=== PATIENT | female | born 1955 | race Caucasian/White ===

== ENCOUNTER 2016-11-13 17:51 | Emergency (ER) | payer OTHER ==
[2016-11-13 18:30] VITALS: BP 157/80
--- NOTE | 2016-11-13 22:33 | UC ---
Upper Extremity HPI - HPI Summary HPI Summary: fingers hurting after shovelling snow today. She has known arthritis. Her doctor wanted her to see a Inspector [employer]ing to see what kind of arthritis it is, but she never went. She has deformities and swelling of fingers, especially 3rd fingers PIP joints. After shovelling snow, these fingers swelled and were more painful than usual. Fingertips painful and tingly. She has been here before with these symptoms and has been told this is what happens with arthritis, but she doesn't seem to understand. Takes an occasional OTC anti-inflammatory for her joint pains. Heat helps. - History of Current Complaint Chief Complaint: UCUpperExtremity Stated Complaint: PAIN, MIDDLE FINGER RIGHT HAND Time Seen by Provider: 11/13/16 18:32 Hx Obtained From: Patient Hx Last Menstrual Period: Age 52 yrs Onset/Duration: Gradual Onset, Lasting Hours Severity Initially: Mild Severity Currently: Moderate Pain Intensity: 9 Pain Scale Used: 0-10 Numeric Character: Dull, Aching, Stiffness Aggravating Factor(s): Movement, Flexion, Extension Alleviating Factor(s): Heat Associated Signs And Symptoms: Positive: Swelling. Negative: Redness, Bruising , Fever, Weakness, Numbness/Tingling - Risk Factors Non-Orthopedic Risk Factor: Negative DVT Risk Factors: Negative Septic Arthritis Risk Factor: Negative Compartment Syndrome Risk Factors: Pain - Allergies/Home Medications Allergies/Adverse Reactions: Allergies Allergy/AdvReac Type Severity Reaction Status Date / Time No Known Allergies Allergy Verified 11/13/16 18:30 PMH/Surg Hx/FS Hx/Imm Hx - Additional Past Medical History Additional PMH: arthritis smiley in hands, but also elsewhere. She was told "it could be rheumatoid arthritis", but no workup has been done Psychological History Of: Reports: Anxiety - Surgical History Surgical History: Yes Surgery Procedure, Year, and Place: 2000 L breast lumpectomy - Family History Family History: she is vague about family history, when I ask about arthritis in family she isn't sure. Does say her mother young. - Social History Occupation: Retired Lives: With Family Alcohol Use: None Substance Use Type: Prescribed Smoking Status (MU): Light Every Day Tobacco Smoker Amount Used/How Often: < 1/2 ppd Have You Smoked in the Last Year: Yes Review of Systems Constitutional: Negative Skin: Negative Eyes: Negative ENT: Negative Respiratory: Negative Cardiovascular: Negative Gastrointestinal: Negative Genitourinary: Negative Motor: Negative Neurovascular: Negative Musculoskeletal: Arthralgia, Decreased ROM Neurological: Negative Psychological: Negative All Other Systems Reviewed And Are Negative: Yes Physical Exam Triage Information Reviewed: Yes Appearance: Well-Appearing, No Pain Distress, Well-Nourished, Thin Vital Signs: Initial Vital Signs Temp 98.5 F 11/13/16 18:22 Pulse 86 11/13/16 18:22 Resp 20 11/13/16 18:22 BP 157/80 11/13/16 18:22 Vital Signs Reviewed: Yes Eye Exam: Normal Respiratory Exam: Normal Cardiovascular Exam: Normal Musculoskeletal Exam: Other - both hands with changes consistent with arthritis , particularly PIP joints. There is mild deformity of both 3rd fingers from arthritis. No redness. Mild joint swelling. Pain on flexion and extension. Neurological Exam: Normal Psychological Exam: Normal Skin Exam: Normal Upper Extremity Course/Dx - Differential Dx/Diagnosis Differential Diagnosis/HQI/PQRI: Arthritis Provider Diagnoses: arthritis Discharge - Discharge Plan Condition: Stable Disposition: HOME Patient Education Materials: Arthritis (ED) Referrals: Bessy Snyder MD [Medical Doctor] - Jerome DIAZ,Janie Awad [Medical Doctor] - Additional Instructions: Talk to your primary care doctor or a [employer] (Dr. Cano) to see about a work-up for your arthritis. Once you have arthritis, it doesn't go away. It will gradually get worse. But there are medicines that can be very helpful for slowing down the joint destruction and helping with the pain. For now, take three Motrin tablets three times a day when your arthritis pain is bothersome. Put heat on the sore joints and rest them.
== END 2016-11-13 18:55 | disposition home or self-care (01) ==
LOC: UCCORT 17:51
DX: M19.041 Primary osteoarthritis, right hand (principal); F17.210 Nicotine dependence, cigarettes, uncomplicated
CPT/HCPCS: 99211; G0463

== ENCOUNTER 2017-06-13 11:40 | Emergency (ER) | payer OTHER ==
[2017-06-13 12:44] VITALS: BP 188/107
--- NOTE | 2017-06-13 13:12 | RAD ---
HISTORY: Constipation, bloating COMPARISONS: None VIEWS: Frontal views of the abdomen. FINDINGS: BOWEL: There is a nonspecific bowel gas pattern, with nondilated small bowel gas noted. There is a large amount of stool within the colon. CALCULI: There are no abnormal calculi. BONES AND SOFT TISSUES: There are no osseous abnormalities. OTHER FINDINGS: The lung bases are clear. There is no subphrenic gas. IMPRESSION: NONSPECIFIC BOWEL GAS PATTERN. LARGE AMOUNT OF STOOL THROUGHOUT THE COLON.
--- NOTE | 2017-06-13 15:07 | UC ---
Abdominal Pain Female HPI - HPI Summary HPI Summary: 62 year old female with constipationand no BM in > 8 days prior to recent surgery. She was on hydro but has not taken in days. Took MOM and prune juice but no help. No pain. No nausea. No vomiting or fever or abdominal cramping. Just wants to make sure no acute concerns . - History of Current Complaint Chief Complaint: UCGeneralIllness Stated Complaint: CONSTIPATION Time Seen by Provider: 06/13/17 12:48 Hx Obtained From: Patient, Family/Compensation Manager Hx Last Menstrual Period: Age 52 yrs Onset/Duration: Gradual Onset Pain Intensity: 0 Pain Scale Used: 0-10 Numeric Location: Diffuse Radiates: No Aggravating Factor(s): Nothing Alleviating Factor(s): Nothing Associated Signs and Symptoms: Positive: Negative Allergies/Adverse Reactions: Allergies Allergy/AdvReac Type Severity Reaction Status Date / Time No Known Allergies Allergy Verified 06/13/17 12:34 Home Medications: Home Medications Acetaminophen [Acetaminophen Extra Stren] 500 mg PO Q6H PRN 06/13/17 [History Confirmed 06/13/17] Cephalexin CAP* [Keflex 500 CAP*] 500 mg PO BID 06/13/17 [History Confirmed ] Docusate CAP* [Colace Cap*] 100 mg PO BID 06/13/17 [History Confirmed 06/13/17] Magnesium Hydroxide LIQ* [Milk of Magnesia LIQ*] 30 ml PO ONCE PRN 06/13/17 [ History Confirmed 06/13/17] oxyCODONE/Acetam5/325MG PREPAK [Percocet 5/325 TAB*] 0.5 tab PO Q4H PRN [History Confirmed 06/13/17] PMH/Surg Hx/FS Hx/Imm Hx Previously Healthy: Yes - Surgical History Surgical History: Yes Surgery Procedure, Year, and Place: 2000 L breast lumpectomy. 2017- bilateral mastectomy - Family History Known Family History: Negative: Cardiac Disease, Hypertension Family History: she is vague about family history, when I ask about arthritis in family she isn't sure. Does say her mother young. - Social History Lives: With Family Alcohol Use: None Substance Use Type: Prescribed Smoking Status (MU): Light Every Day Tobacco Smoker Amount Used/How Often: < 1/2 ppd Have You Smoked in the Last Year: Yes When Did the Patient Quit Smoking/Using Tobacco: 1 week ago Review of Systems Gastrointestinal: Other - constipation All Other Systems Reviewed And Are Negative: Yes Physical Exam Triage Information Reviewed: Yes Appearance: Well-Appearing, No Pain Distress, Well-Nourished Vital Signs: Initial Vital Signs Temp 99 F 06/13/17 12:36 Pulse 88 06/13/17 12:36 Resp 16 06/13/17 12:36 BP 188/107 06/13/17 12:36 Pulse Ox 100 06/13/17 12:36 Vital Signs Reviewed: Yes Eye Exam: Normal ENT Exam: Normal Dental Exam: Normal Neck exam: Normal Neck: Positive: 1 Respiratory Exam: Normal Cardiovascular Exam: Normal Abdominal Exam: Normal Abdomen Description: Positive: Nontender, No Organomegaly, Soft. Negative: CVA Tenderness (R), CVA Tenderness (L), Distended, Guarding Bowel Sounds: Positive: Hypoactive Musculoskeletal Exam: Normal Neurological Exam: Normal Psychological Exam: Normal Skin Exam: Normal Abd Pain Female Course/Dx - Course Course Of Treatment: xray shows no SBO. Advised to increase water intake, start Mg citrate to get the BM to move and if not improved tomorrow and no BM then RTO for enela but she declined at this time - Differential Dx/Diagnosis Provider Diagnoses: Constipation Discharge - Discharge Plan Condition: Good Disposition: HOME Prescriptions: Magnesium CITRATE* [Citrate of Magnesia*] 300 ml PO SEE INSTRUCTIONS #1 btl Patient Education Materials: Constipation (ED) Referrals: Delmis Santana NP [Primary Care Provider] - 4 Days
== END 2017-06-13 13:30 | disposition home or self-care (01) ==
LOC: UCCORT 11:40
DX: K59.00 Constipation, unspecified (principal); I10 Essential (primary) hypertension
CPT/HCPCS: 74020; 99212; G0463

== ENCOUNTER 2019-09-18 11:16 | Emergency (ER) | payer MEDICARE, OTHER ==
--- OUTSIDE RECORDS SUMMARY | 2019-09-18 11:40 | XMS REPORT | Continuity of Care Document ---
:1955 External Reference #:[id number] Author Name Josias Santana FNP Address [address] [place] [id number] Care Team Providers Name Role Phone Josias Santana MARKET DEVELOPMENT DIRECTOR - Nurse Care Team Information [facility] Practitioner Problems Active Problems Provider Date Pain in limb Faviola Monteiro MD Onset: 03/09/2016 Tobacco use Faviola Monteiro MD Onset: 03/09/2016 Personal history of primary malignant Josias Santana FNP Onset: 2017 neoplasm of breast Note: left breast - Osteoporosis Josias Santana FNP Onset: 09/04/2018 Note: Document: 09/01/18 - Dexa Scan Result Increased frequency of urination Josias Santana FNP Onset: 05/20/2019 Social History Type Date Description Comments Sex Unknown ETOH Use Rarely consumes alcohol Tobacco Use Start: Unknown End: Patient is a former smoker 1/4 PPD x 10 years Smoking Status Reviewed: 08/10/19 Patient is a former smoker 1/4 PPD x 10 years Allergies, Adverse Reactions, Alerts Description No Known Drug Allergies Medications Active Medications SIG Qnty Indications Ordering Date Provider Naproxen 1 tab by mouth twice 60tabs M65.842 Faviola Monteiro, 03/18/2019 250mg a day Tablets Fosamax one PO Q week *for 12tabs M81.8 Esther, 09/12/2018 70mg osteoporosis Josias, Tablets PRESSURE WASHER M17.0 Calcium 600-D 1 by mouth every 90tabs Josias Santana, 09/12/2018 [id number] day PRESSURE WASHER Tablets Immunizations CPT Code Status Date Vaccine Lot # [id number] Given 08/10/2019 Influenza High Dose [id number] Vital Signs Date Vital Result Comment 08/10/2019 1:44pm BP Systolic 151 mmHg 170/90 on repeat on RT arm BP Diastolic 80 mmHg 170/90 on repeat on RT arm Body Temperature 97.1 F Heart Rate 87 /min Respiratory Rate 18 /min Height 61.5 inches 5'1.50" Weight 120.38 lb BMI (Body Mass Index) 22.4 kg/m2 BSA (Body Surface Area) 1.53 m2 [place] body weight in kilograms 49 kg O2 % BldC Oximetry 95 % Ra Pain Level 0 03/18/2019 2:06pm BP Systolic 138 mmHg BP Diastolic 74 mmHg Body Temperature 98.1 F Heart Rate 96 /min Weight 120.12 lb O2 % BldC Oximetry 95 % Results Description No Information Available Procedures Date Code Description Status 09/01/2018 667704649 Bone Mineral Density Test Completed 04/08/2017 [id number] Mammogram Completed Medical Devices Description No Information Available Encounters Type Date Location Provider Dx Diagnosis Office Visit 03/18/2019 Family Medicine Charely Lunsford PA M65.842 Other synovitis 2:00p [address] and tenosynovitis, left hand Assessments Date Code Description Provider 08/10/2019 Z01.411 Encounter for gynecological examination Josias Santana FNP (general) (routine) with abnormal findings 08/10/2019 R03.0 Elevated blood-pressure reading, without Josias Santana FNP diagnosis of hypertension 08/10/2019 N95.0 Postmenopausal bleeding Josias Santana FNP 08/10/2019 Z12.11 Encounter for screening for malignant Josias Santana FNP neoplasm of colon 03/18/2019 M65.842 Other synovitis and tenosynovitis, left Charley Lunsford PA hand Plan of Treatment 08/10/2019 - Josias Santana FNPZ01.411 Encounter for gynecological examination (general) (routine) with abnormal findingsComments:depression screening negative Fall risk assessed - needs grab bars in bathroom, discussed. No H/O fallsImmunizations reviewed - declined pneumo's and given yearly flu shot, high dosePain assessment negativeMMSE - within normal limitsHealth care proxy reviewed, daughter - needs advance directives Screenings:Breast [facility] due to post menopausal bleeding concernscologaurd in place of tvbybejbmdvU41.0 Elevated blood-pressure reading, without diagnosis of hypertensionComments:may be one time high, but will get several nurse visits and then a follow up appt w/me to discuss furtherFollow up: two nurse visits (spaced a 10 -14 days) then follow up with me for BP f/u 15 min in 4-6 yyzesB62.0 Postmenopausal bleedingComments:Pap done - will await results. May need ultrasound for further zpezjcqznzE30.11 Encounter for screening for malignant neoplasm of colonComments:cologaurd ordered Functional Status Functional Condition Comment Date Status Glasses Active Independent with all ADL's Active Mental Status Description No Information Available Referrals Description No Information Available
--- NOTE | 2019-09-18 13:24 | UC ---
Lower Extremity/Ankle HPI - HPI Summary HPI Summary: Patient is a 64yo female presenting with L foot pain x1 week. Patient states that she may have hit her foot on a metal wheel of a chair but is unsure if that is what caused her pain. Patient describes pain as constant "feeling of big bruise." Denies any visible bruising. Denies swelling. Denies decreased ROM. Patient states pain is worse with walking at times. States she has tried hot pack and ibuprofen without relief. Denies h/o gout or known arthritis. - History of Current Complaint Chief Complaint: UCLowerExtremity Stated Complaint: LEFT FOOT COMPLAINT Hx Obtained From: Patient Hx Last Menstrual Period: Age 52 yrs Onset/Duration: Sudden Onset, Lasting Days Severity Currently: Moderate Pain Intensity: 8 Pain Scale Used: 0-10 Numeric Aggravating Factor(s): Standing, Ambulation Able to Bear Weight: Yes - Allergies/Home Medications Allergies/Adverse Reactions: Allergies Allergy/AdvReac Type Severity Reaction Status Date / Time No Known Allergies Allergy Verified 09/18/19 12:00 Home Medications: Home Medications NK [No Home Medications Reported] 09/18/19 [History Confirmed 09/18/19] PMH/Surg Hx/FS Hx/Imm Hx Previously Healthy: Yes - Surgical History Surgical History: Yes Surgery Procedure, Year, and Place: 2000 L breast lumpectomy. 2017- bilateral mastectomy - Family History Known Family History: Negative: Cardiac Disease, Hypertension Family History: she is vague about family history, when I ask about arthritis in family she isn't sure. Does say her mother young. - Social History Alcohol Use: Occasionally Substance Use Type: None Smoking Status (MU): Former Smoker Amount Used/How Often: < 1/2 ppd Have You Smoked in the Last Year: Yes When Did the Patient Quit Smoking/Using Tobacco: 2018 Review of Systems All Other Systems Reviewed And Are Negative: Yes Constitutional: Positive: Negative Skin: Negative: Rash, Bruising Respiratory: Positive: Negative Cardiovascular: Positive: Negative Gastrointestinal: Positive: Negative Musculoskeletal: Positive: Arthralgia - L foot pain. Negative: Decreased ROM, Edema Neurological: Positive: Negative. Negative: Weakness, Paresthesia, Numbness Physical Exam Triage Information Reviewed: Yes Appearance: Well-Appearing, No Pain Distress, Well-Nourished Vital Signs: Initial Vital Signs Temp 98.9 F 09/18/19 12:00 Pulse 78 09/18/19 12:00 Resp 16 09/18/19 12:00 BP 147/77 09/18/19 12:00 Pulse Ox 96 09/18/19 12:00 Vital Signs Reviewed: Yes Eyes: Positive: Conjunctiva Clear ENT: Positive: Hearing grossly normal Neck: Positive: Supple Respiratory: Positive: No respiratory distress Cardiovascular: Positive: Pulses Normal, Brisk Capillary Refill - <2 sec Musculoskeletal: Positive: Strength Intact, ROM Intact, No Edema, Other: - mild tenderness with palpation of L lateral forefoot Neurological Exam: Other - sensation grossly intact Neurological: Positive: Alert Psychological: Positive: Age Appropriate Behavior Skin Exam: Normal - no erythema or ecchymosis Diagnostics - Radiology L foot Radiology Interpretation Completed By: Radiologist Summary of Radiographic Findings: IMPRESSION: NO EVIDENCE FOR FRACTURE, IF THE PATIENT'S SYMPTOMS PERSIST RECOMMEND FOLLOW-UP IMAGING. Lower Extremity Course/Dx - Course Course Of Treatment: Discussed negative radiographs with patient and instructed to continue with symptomatic treatment, including RICE and loose fitting shoes. Instructed patient to follow up with pcp or ortho if pain persist. Instructed to go to ED with any new or worsening symptoms. Patient voiced understanding and agreed with treatment plan. - Differential Dx/Diagnosis Differential Diagnosis/HQI/PQRI: Arthritis, Contusion, Sprain, Strain Provider Diagnosis: Acute pain of left foot Discharge ED - Sign-Out/Discharge Documenting (check all that apply): Patient Departure All imaging exams completed and their final reports reviewed: Yes - Discharge Plan Condition: Stable Disposition: HOME Patient Education Materials: Metatarsalgia (DC) Referrals: Delmis Santana NP [Primary Care Provider] - If Needed Cornelius Yu MD [Medical Doctor] - If Needed Additional Instructions: As discussed, your xrays did not show any abnormalities. Rest, ice, heat, elevation, and compression to help alleviate pain symptoms. You may continue to use over the counter pain medications as directed for pain relief. Wear shoes with a hard sole that also offer support and are loose fitting. Follow up with your primary care provider or the orthopedic referral listed below if pain persists. - Billing Disposition and Condition Condition: STABLE Disposition: Home
[2019-09-18 14:12] VITALS: BP 138/66
== END 2019-09-18 14:29 | disposition home or self-care (01) ==
LOC: UCCORT 11:16
DX: M79.672 Pain in left foot (principal); Z87.891 Personal history of nicotine dependence
CPT/HCPCS: 99211; G0463

== ENCOUNTER 2019-11-15 14:15 | Emergency (ER) | payer MEDICARE ==
--- OUTSIDE RECORDS SUMMARY | 2019-11-15 16:32 | XMS REPORT | Continuity of Care Document ---
:1955 External Reference #:[id number] Author Name Esther ROBINSON Ferrara Address [address] [place] [id number] Care Team Providers Name Role Phone Josias Santana ASIAN ART CURATOR - Nurse Care Team Information Social Services [phone] Practitioner Rupali Pulliam M.D. 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: left breast - Osteoporosis Josias Santana FNP Onset: 09/04/2018 Note: Document: 09/01/18 - Dexa Scan Result Increased frequency of urination Esther ROBINSON Ferrara Onset: 05/20/2019 Social History Type Date Description Comments Sex Unknown ETOH Use Rarely consumes alcohol Tobacco Use Start: Unknown End: Patient is a former smoker 1/4 PPD x 10 years Smoking Status Reviewed: 10/22/19 Patient is a former smoker 1/4 PPD x 10 years Allergies, Adverse Reactions, Alerts Description No Known Drug Allergies Medications Active Medications SIG Qnty Indications Ordering Provider Date Naproxen 1 tab by mouth 60tabs M65.842 Faviola Monteiro MD 03/18/2019 250mg Tablets twice a day Calcium 600-D 1 by mouth every 90tabs Esther, 09/12/2018 day ROBINSON Ferrara [id number] Tablets Geritol Complete take 1 tablet Unknown daily Tablets Immunizations CPT Code Status Date Vaccine Lot # [id number] Given 08/10/2019 Influenza High Dose [id number] Refused 10/22/2019 Pneumovax Injection Vital Signs Date Vital Result Comment 10/22/2019 1:20pm BP Systolic 144 mmHg BP Diastolic 75 mmHg Body Temperature 96.5 F Heart Rate 87 /min Respiratory Rate 18 /min Height 61 inches 5'1" Weight 120.00 lb BMI (Body Mass Index) 22.7 kg/m2 BSA (Body Surface Area) 1.52 m2 [place] body weight in kilograms 48 kg O2 % BldC Oximetry 98 % Ra 09/21/2019 2:02pm BP Systolic 130 mmHg BP Diastolic 90 mmHg Heart Rate 83 /min Respiratory Rate 16 /min Weight 120.25 lb Results Description No Information Available Procedures Date Code Description Status 09/01/2018 252301335 Bone Mineral Density Test Completed 04/08/2017 16368307 Mammogram Completed Medical Devices Description No Information Available Encounters Type Date Location Provider Dx Diagnosis Office Visit 10/22/2019 Family Medicine Esther R03.0 Elevated 1:15p [address] Josias blood-pressure TABLE COVER FOLDER reading, w/o diagnosis of htn N95.0 Postmenopausal bleeding Office Visit 09/21/2019 1:45p Family Medicine Family Nurse I10 Essential (primary) [address] hypertension Office Visit 09/07/2019 1:00p Family Medicine Family Nurse I10 Essential (primary) [address] hypertension Office Visit 08/24/2019 1:00p Family Medicine Family Nurse R03.[address] blood-pressure reading, w/o diagnosis of htn Assessments Date Code Description Provider 10/22/2019 R03.0 Elevated blood-pressure reading, without Josias Santana FNP diagnosis of hypertension 10/22/2019 N95.0 Postmenopausal bleeding Josias Santana FNP 09/21/2019 I10 Essential (primary) hypertension Faviola Monteiro MD 09/21/2019 I10 Essential (primary) hypertension Family Nurse 09/07/2019 I10 Essential (primary) hypertension Faviola Monteiro MD 09/07/2019 I10 Essential (primary) hypertension Family Nurse 08/24/2019 R03.0 Elevated blood-pressure reading, without Faviola Monteiro MD diagnosis of hypertension 08/24/2019 R03.0 Elevated blood-pressure reading, without Family Nurse diagnosis of hypertension 08/10/2019 Z00.01 Encounter for general adult medical Darling SantanatatianamukeshROBINSON examination with abnormal findings 08/10/2019 R03.0 Elevated blood-pressure reading, without Josias Santana FNP diagnosis of hypertension 08/10/2019 N95.0 Postmenopausal bleeding Josias SantanaROBINSON 08/10/2019 Z12.11 Encounter for screening for malignant Esther Bobomukesh ROBINSON neoplasm of colon 08/10/2019 Z23 Encounter for immunization Josias SantanaROBINSON 08/10/2019 Z12.4 Encounter for screening for malignant Esther Lianaastridkennamukesh ROBINSON neoplasm of cervix Plan of Treatment 10/22/2019 - Josias Santana FNPR03.0 Elevated blood-pressure reading, without diagnosis of hypertensionComments:reviewed BP readings from previous nurse visit - all under 150. At this time, with age adjustments,no recommendations for starting medication.Follow up:As needed and for yearly physical atuvsP13.0 Postmenopausal bleedingNew Xrays:Ultrasound, Pelvic Transvaginal (Non-OB), Scheduled: 11/16/19Comments:reviewed Pap results - ASCUS but HPV negative, repeat in 3 years recommendedDiscussed concern for endometrial hyperplasia with post coital bleeding and while bleeding has stopped for the past month, does not mean that nothing is there Functional Status Functional Condition Comment Date Status Glasses Active Independent with all ADL's Active Mental Status Description No Information Available Referrals Description No Information Available
[2019-11-15 16:57] VITALS: BP 135/74
--- NOTE | 2019-11-15 17:01 | UC ---
Respiratory Complaint HPI - HPI Summary HPI Summary: sore throat hot flashes nasal congestion worsening over the past week - History of Current Complaint Chief Complaint: UCGeneralIllness Stated Complaint: COUGH, CHEST CONGESTION Time Seen by Provider: 11/15/19 16:39 Hx Obtained From: Patient Hx Last Menstrual Period: Age 52 yrs ?: No Onset/Duration: Gradual Onset, Lasting Days - 7, Still Present Timing: Constant Severity Initially: Mild Severity Currently: Moderate Pain Intensity: 8 Pain Scale Used: 0-10 Numeric Character: Cough: Nonproductive Aggravating Factors: Nothing Alleviating Factors: Nothing Associated Signs And Symptoms: Positive: Fever, Chills, URI, Nasal Congestion - Allergies/Home Medications Allergies/Adverse Reactions: Allergies Allergy/AdvReac Type Severity Reaction Status Date / Time No Known Allergies Allergy Verified 11/15/19 16:52 Home Medications: Home Medications Dm/PE/Acetaminophen/Chlorphenr [Mayela-Corona Plus Cld-Cough Cp] 1 dose PO ONCE 11/15/19 [History Confirmed 11/15/19] Phenylephrine/Dm/Acetaminop/GG [Mucinex Zwlf-Mxy-Dalvorxtgk Lq] 1 dose PO ONCE 11/15/19 [History Confirmed 11/15/19] PMH/Surg Hx/FS Hx/Imm Hx Previously Healthy: Yes - Surgical History Surgical History: Yes Surgery Procedure, Year, and Place: 2000 L breast lumpectomy. 2017- bilateral mastectomy - Family History Known Family History: Negative: Cardiac Disease, Hypertension Family History: she is vague about family history, when I ask about arthritis in family she isn't sure. Does say her mother young. - Social History Occupation: Retired Lives: Alone Alcohol Use: Occasionally Substance Use Type: None Smoking Status (MU): Former Smoker Amount Used/How Often: < 1/2 ppd Have You Smoked in the Last Year: Yes When Did the Patient Quit Smoking/Using Tobacco: 2018 Review of Systems All Other Systems Reviewed And Are Negative: Yes Constitutional: Positive: Fever, Chills, Fatigue ENT: Positive: Sore Throat Respiratory: Positive: Cough Cardiovascular: Positive: Negative Gastrointestinal: Positive: Negative Genitourinary: Positive: Negative Motor: Positive: Negative Neurovascular: Positive: Negative Musculoskeletal: Positive: Arthralgia Neurological/Mental Status: Positive: Headache Psychological: Positive: Negative Is Patient Immunocompromised?: No Physical Exam Triage Information Reviewed: Yes Appearance: No Pain Distress, Well-Nourished, Ill-Appearing - mild Vital Signs: Initial Vital Signs Temp 99.3 F 11/15/19 16:53 Pulse 95 11/15/19 16:53 Resp 16 11/15/19 16:53 BP 135/74 11/15/19 16:53 Pulse Ox 99 11/15/19 16:53 Vital Signs Reviewed: Yes Eye Exam: Normal Eyes: Positive: Conjunctiva Clear ENT Exam: Normal ENT: Positive: Normal ENT inspection, Hearing grossly normal, TMs normal, Uvula midline. Negative: Nasal congestion, Nasal drainage, Tonsillar swelling, Tonsillar exudate, Trismus, Muffled voice, Hoarse voice, Dental tenderness, Sinus tenderness Dental Exam: Normal Neck exam: Normal Neck: Positive: Supple, Nontender, No Lymphadenopathy Respiratory Exam: Normal Respiratory: Positive: Chest non-tender, Lungs clear, Normal breath sounds, No respiratory distress, No accessory muscle use Cardiovascular Exam: Normal Cardiovascular: Positive: RRR, No Murmur, Pulses Normal, Brisk Capillary Refill Musculoskeletal Exam: Normal Musculoskeletal: Positive: Strength Intact, ROM Intact, No Edema Neurological Exam: Normal Neurological: Positive: Alert, Muscle Tone Normal Psychological Exam: Normal Skin Exam: Normal Diagnostics - Laboratory Lab Results: RST - Influenza - Respiratory Course/Dx - Course Course Of Treatment: increase fluids, tylenol, ibuprofen otc medications for symptom management follow with pcp prn - Differential Dx/Diagnosis Provider Diagnosis: URI (upper respiratory infection) Discharge ED - Sign-Out/Discharge Documenting (check all that apply): Patient Departure All imaging exams completed and their final reports reviewed: No Studies - Discharge Plan Condition: Stable Disposition: HOME Patient Education Materials: Upper Respiratory Infection (ED), Viral Syndrome ( ED) Referrals: Delmis Santana NP [Primary Care Provider] - If Needed - Billing Disposition and Condition Condition: STABLE Disposition: Home - Attestation Statements Provider Attestation: This patient was not seen by me. I was available for consult. Chart reviewed. JOSEFINA
[2019-11-15 17:17] LABS: Influenza A Molecular Negative (Negative); Influenza B Molecular Negative (Negative)
== END 2019-11-15 17:27 | disposition home or self-care (01) ==
LOC: UCCORT 14:15
DX: J06.9 Acute upper respiratory infection, unspecified (principal); R51 Headache; R53.83 Other fatigue; Z87.891 Personal history of nicotine dependence
CPT/HCPCS: 87651; 99211; G0463